=== PATIENT | male | born 1995 | race African-American/Black ===

== ENCOUNTER 2017-07-30 20:48 | Emergency (ER) | payer SELFPAY ==
[2017-07-30] MEDS ORDERED: IBUPROFEN 200 MG TABLET PO ONE (21:11)
[2017-07-30] MEDS ORDERED: ACETAMINOPHEN 500 MG TABLET PO ONE (21:11)
[2017-07-30] MEDS ORDERED: IBUPROFEN 400 MG TABLET PO ONE ×2 (21:15→21:19)
--- NOTE | 2017-07-30 21:16 | ED Physician Documentation ---
General Adult - HISTORIAN Historian: patient - HPI Stated Complaint: back pain Chief Complaint: General Adult Additional Information: Playing basketball and was knocked down. Landed on back. Couldn't catch breath. Says he "pancaked" onto the court floor. Also says he doesn't remember the landing. Thinks he "blacked out. Doesn't know if he hit his head. No pain in head. Right glut hurts. No numbness, tingling, loss bowel/bladder control. Walking about. Onset: minutes (30 minutes prior to arrival in the ER) Modifying Factors: Sits leaning to the left. No meds taken. - ROS CONST: no problems - PAST HX Past History: none Surgeries/Procedures: none Allergies/Adverse Reactions: Allergies Allergy/AdvReac Type Severity Reaction Status Date / Time No Known Allergies Allergy Verified 07/19/14 04:05 Home Medications: Ambulatory Orders Medication Instructions Recorded Cephalexin [Keflex] 250 mg PO QID #10 btl 07/19/14 - SOCIAL HX Smoking History: non-smoker - FAMILY HX Family History: No - VITAL SIGNS Vital Signs: Vital Signs Temp Pulse Resp BP Pulse Ox 151/88 07/19/14 03:43 - REVIEWED ASSESSMENTS Nursing Assessment Reviewed: Yes Vitals Reviewed: Yes ED Results Lab/Radiology - Orders Orders: ED Orders Category Date Time Status Acetaminophen [Tylenol Extra Strength] Med 07/30/17 21:11 Once 1,000 mg PO NOW ONE Ibuprofen [Advil] Med 07/30/17 21:11 Once 600 mg PO NOW ONE General Adult Physical Exam - PHYSICAL EXAM GENERAL APPEARANCE: moderate distress (quite anxious) NECK: normal inspection, supple, other (full ROOM. no tenderness or muscle spasm ) RESPIRATORY: no resp distress, chest non-tender, breath sounds normal CVS: reg rate & rhythm, heart sounds normal BACK: normal inspection, no CVA tenderness, other (no vertebral tenderness. Tender to palp right proximal SI area.) SKIN: warm/dry, normal color EXTREMITIES: non-tender, normal range of motion, no evidence of injury NEURO: CN's nml as tested, motor nml, sensation nml, cognition normal, other ( Reflexes 2+ throughout. ). No: weakness/sensory loss, sensory/motor deficit Discharge Clincal Impression: Back pain Referrals: Primary Doctor,No [Primary Care Provider] - 2 Days Additional Instructions: Ice to the sore area of your back for 30 minutes of each hour you are awake and at bedtime. You can take 1000 mg tylenol as often as every 8 hours. You can also take 600 mg ibuprofen with food every 6-8 hours for 5 days. Since you don' t know if you hit your head, return to the ER immediately with prolonged vomiting or unusual behavior. Condition: Good Disposition: 01 HOME, SELF-CARE Decision to Admit: NO Decision Time: 21:20
[2017-07-30 21:54] VITALS: BP 109/69
== END 2017-07-30 21:25 | disposition home or self-care (01) ==
LOC: ED 20:48
DX: M54.5 Low back pain (principal)
CPT/HCPCS: 99282

== ENCOUNTER 2018-07-17 07:30 | Emergency (ER) | payer SELFPAY ==
[2018-07-17] MEDS ORDERED: ONDANSETRON HCL/PF 4 MG/ 2ML VIAL IVP ONE (07:46)
[2018-07-17] MEDS ORDERED: 0.9 % SODIUM CHLORIDE 1,000 ML IV ONE (07:46)
[2018-07-17 07:49] VITALS: BP 136/58
--- NOTE | 2018-07-17 07:55 | ED Physician Documentation ---
Nausea/Vomiting/Diarrhea - HPI Stated Complaint: Nausea/Vomiting Chief Complaint: Nausea,Vomiting,Diarrhea Additional Information: Patient presents with a 12 hour history of nausea/vomting/diarrhea with generalized abdominal pain. He denies fever, chills. He reports 1 episode of vomiting and 3 episodes of diarrhea since yesterday evening at 7pm. He denies any previous surgeries to abdomen. Onset: hours (12) Duration: waxing, waning Timing: sudden onset Context: denies: out of country travel Severity: moderate - Associated Symptoms Vomiting: mild Diarrhea: watery. denies: blood-streaked Abdominal Pain: aching - ROS CONST: none CVS/RESP: denies: chest pain, shortness of breath EYES/ENT: none MS/SKIN/LYMPH: denies: joint pain NEURO/PSYCH: denies: headache - PAST HX Past History: none Surgeries/Procedures: none Allergies/Adverse Reactions: Allergies Allergy/AdvReac Type Severity Reaction Status Date / Time No Known Allergies Allergy Verified 07/17/18 07:49 Home Medications: Ambulatory Orders Medication Instructions Recorded Ondansetron HCl Rapdis [Zofran Odt] 4 mg PO Q8 PRN #20 tab 07/17/18 - SOCIAL HX Smoking History: non-smoker Alcohol Use: none Drug Use: none - FAMILY HX Family History: none - VITAL SIGNS Vital Signs: Vital Signs Temp Pulse Resp BP Pulse Ox 98.8 F 91 H 15 136/58 99 07/17/18 09:02 07/17/18 09:02 07/17/18 09:02 07/17/18 09:02 07/17/18 09:02 - REVIEWED ASSESSMENTS Nursing Assessment Reviewed: Yes Vitals Reviewed: Yes Progress - Results/Orders Results/Orders: 0825 Influenza A/B negative. ED Results Lab/Radiology - Lab Results Lab Results: Lab Results 07/17/18 07/17/18 07:57 07:57 WBC 6.80 K/ul K/ul (4.00-12.00) RBC 4.98 M/ul M/ul (3.90-5.20) Hgb 14.6 g/dL g/dL (12.0-18.0) Hct 45.0 % % (37.0-53.0) MCV 90.0 fl fl (80.0-100.0) MCH 29.3 pg pg (28.0-34.0) MCHC 32.3 g/dL g/dL (30.0-36.0) RDW 13.1 % % (11.3-14.3) Plt Count 264 K/mm3 K/mm3 (130-400) Neut % (Auto) 82.5 % H % (39.0-79.0) Lymph % (Auto) 8.9 % L % (16.0-50.0) [place] % (Auto) 6.7 % % (0.0-11.0) Eos % (Auto) 1.6 % % (0.0-6.8) Baso % (Auto) 0.3 (0.0-1.5) Neut # (Auto) 5.6 # k/uL # k/uL (1.4-7.7) Lymph # (Auto) 0.6 # k/uL # k/uL (0.6-4.0) [place] # (Auto) 0.5 # k/uL # k/uL (0.0-0.9) Eos # (Auto) 0.1 # k/uL # k/uL (0.0-0.6) Baso # (Auto) 0.0 # k/uL # k/uL (0.0-0.5) Sodium 138 mmol/L mmol/L (136-145) Potassium 3.9 mmol/L mmol/L (3.5-5.1) Chloride 101 mmol/L mmol/L (98-107) Carbon Dioxide 26 mmol/L mmol/L (22-30) BUN 12 mg/dL mg/dL (9-20) Creatinine 1.10 mg/dL mg/dL (0.66-1.25) Estimated Creat Clear 149 Est GFR ( Amer) > 60 (60 - ) Est GFR (Non-Af Amer) > 60 (60 - ) Glucose 97 mg/dL mg/dL (74-106) Calcium 9.2 mg/dL mg/dL (8.4-10.2) Total Bilirubin 1.0 mg/dL mg/dL (0.2-1.3) AST 38 U/L U/L (15-46) ALT 35 U/L U/L (13-69) Alkaline Phosphatase 86 U/L U/L (38-126) Total Protein 7.8 g/dL g/dL (6.3-8.2) Albumin 5.2 g/dL H g/dL (3.5-5.0) - Orders Orders: ED Orders Category Date Time Status Place IV Lock 1T Care 07/17/18 07:46 Active CBC/PLATELET/DIFF Routine Lab 07/17/18 07:57 Completed CMP Routine Lab 07/17/18 07:57 Completed INFLUENZA A&B Stat Lab 07/17/18 08:06 Ordered 0.9 % Sodium Chloride [Normal Saline] 1,000 ml Med 07/17/18 07:46 Discontinued IV Q1H Ondansetron HCl/Pf [Zofran 4 mg/2 ml] Med 07/17/18 07:46 Discontinued 4 mg IVP NOW ONE Nausea Physical Exam - EXAM General Appearance: no acute distress, alert EENT: JOSEFINA Neck: supple Respiratory: no resp distress, breath sounds normal CVS: reg rate & rhythm, heart sounds normal Abdomen: non-tender, tenderness (generalized) Back: non-tender, painless ROM Skin: warm/dry Extremities: non-tender Neuro/Psych: oriented X3, motor nml Discharge Clincal Impression: Gastroenteritis Prescriptions: Ondansetron HCl Rapdis [Zofran Odt] 4 mg PO Q8 PRN #20 tab PRN Reason: nausea/vomiting Referrals: Primary Doctor,No [Primary Care Provider] - 2 Days Additional Instructions: 1. Tylenol and/or Ibuprofen as needed for pain/fever 2. Take Zofran as needed for nausea/vomiting 3. You may take Imodium as needed for diarrhea 4. Drink plenty of fluids to maintain proper hydration 5. Follow up with PCP within 1 week 6. Return to ED for new or worsening symptoms. Condition: Stable Decision to Admit: NO Date of Decison to Admit: 07/17/18 Decision Time: 09:52
[2018-07-17 08:08] LABS: MEAN CORPUSCULAR HEMOGLOBIN 29.3 pg (28.0-34.0)
[2018-07-17 08:09] LABS: BASOPHILS % 0.3 (0.0-1.5); EOSINOPHILS % 1.6 % (0.0-6.8); MONOCYTES % 6.7 % (0.0-11.0); NEUTROPHILS # 5.6 # k/uL (1.4-7.7)
[2018-07-17 08:38] LABS: eGFR (Non-African) > 60
== END 2018-07-17 09:02 ==
LOC: ED 07:30
DX: K52.9 Noninfective gastroenteritis and colitis, unspecified (principal)
CPT/HCPCS: 36415; 80053; 85025; 87400; 96374; 99283; 99284; J2405; J7030; S1016